=== PATIENT | female | born 1990 | race Caucasian/White ===

== ENCOUNTER 2020-04-27 03:24 | Emergency (ER) | payer OTHER ==
[~2020-04-27] VITALS: Ht 172.7 cm; Wt 81.6 kg
[2020-04-27 04:15] VITALS: BP 100/58; Ht 172.7 cm; Wt 81.6 kg
== END 2020-04-27 07:15 | disposition home or self-care (01) ==
LOC: ED 03:24
DX: R11.2 Nausea with vomiting, unspecified (principal); T50.995A Adverse effect of other drugs, medicaments and biological substances, initial encounter; G43.909 Migraine, unspecified, not intractable, without status migrainosus; Z88.1 Allergy status to other antibiotic agents; Z88.2 Allergy status to sulfonamides; Y92.89 Other specified places as the place of occurrence of the external cause
CPT/HCPCS: J1885; J2060; J2765; J7030; J7120